=== PATIENT | male | born 1935 | race Native Hawaiian/Other Pacific Islander ===

== ENCOUNTER 2017-01-06 11:27 | Outpatient (CLI) | payer OTHER ==
[~2017-01-06 11:27] MED LIST: AMOX875T8 PO; BENZSOL4 OT; CARDURA4 MG PO; CIPRO500 MG OR; DULO60CA2 OR; FLUT0.05 NAS; KETOROLAC15 MG/ML IJ; LISI20TA24 PO; MELO-13 PO; SIMV10TA PO
== END 2017-01-06 19:17 | disposition home or self-care (01) ==
LOC: RAD 11:27
DX: M25.551 Pain in right hip (principal)

== ENCOUNTER 2017-12-29 07:11 | Outpatient (CLI) | payer OTHER ==
[~2017-12-29] VITALS: Ht 154.9 cm; Wt 76.7 kg
== END 2017-12-29 19:08 | disposition home or self-care (01) ==
LOC: NM 07:11
DX: R07.89 Other chest pain (principal)
CPT/HCPCS: A9500; J2785

== ENCOUNTER 2018-01-10 11:27 | Outpatient (CLI) | payer OTHER | END 2018-01-10 22:24 | disposition home or self-care (01) | LOC: MRI 11:27 | DX: M47.14 Other spondylosis with myelopathy, thoracic region (principal) ==

== ENCOUNTER 2018-01-17 16:13 | Outpatient (CLI) | payer OTHER ==
[2018-01-17 16:49] LABS: PLATELET COUNT 230 K/uL (142-355)
[2018-01-17 16:53] LABS: POTASSIUM 3.6 mmol/L (3.6-5.2)
== END 2018-01-17 22:52 | disposition home or self-care (01) ==
LOC: LABW 16:13
PROVIDERS: Orthopaedic Surgery Orthopaedic Surgery of the Spine
DX: M48.02 Spinal stenosis, cervical region (principal); Z01.810 Encounter for preprocedural cardiovascular examination; Z01.812 Encounter for preprocedural laboratory examination; Z51.81 Encounter for therapeutic drug level monitoring
CPT/HCPCS: 36415; 80048; 81000; 85027; 85610; 87070

== ENCOUNTER 2018-03-24 09:51 | Inpatient (IN) | payer OTHER | END 2018-04-08 11:13 | disposition still patient (30) | LOC: PAVC 09:51 | PROVIDERS: ADMIT Internal Medicine ==

== ENCOUNTER 2018-03-25 00:13 | Outpatient (CLI) | payer OTHER ==
[2018-03-25 08:08] LABS: PLATELET COUNT 320 K/uL (142-355)
[2018-03-25 08:50] LABS: POTASSIUM 3.8 mmol/L (3.6-5.2)
== END 2018-03-25 01:13 | disposition home or self-care (01) ==
LOC: LAB 00:13
PROVIDERS: Internal Medicine
DX: E78.5 Hyperlipidemia, unspecified (principal); E03.9 Hypothyroidism, unspecified; M10.9 Gout, unspecified; L02.91 Cutaneous abscess, unspecified; R19.5 Other fecal abnormalities
CPT/HCPCS: 80053; 80061; 82306; 84443; 85027; 87070; 87077; 87081; 87185; 87186; 87205

== ENCOUNTER 2018-04-06 12:52 | Outpatient (CLI) | payer OTHER | END 2018-04-06 19:43 | disposition home or self-care (01) | LOC: LAB 12:52 | DX: N39.8 Other specified disorders of urinary system (principal); R41.82 Altered mental status, unspecified | CPT/HCPCS: 81000; 87077; 87086; 87088; 87186 ==

== ENCOUNTER 2018-04-08 11:47 | Inpatient (IN) | payer OTHER ==
[2018-04-10] MEDS ORDERED: TAMS0.4C PO (12:18)
== END 2018-05-08 15:05 | disposition still patient (30) ==
LOC: PAVC 11:47
PROVIDERS: ADMIT Internal Medicine
DX: M62.81 Muscle weakness (generalized) (principal); N39.0 Urinary tract infection, site not specified; I25.10 Atherosclerotic heart disease of native coronary artery without angina pectoris; M50.00 Cervical disc disorder with myelopathy, unspecified cervical region; M19.90 Unspecified osteoarthritis, unspecified site; M51.36 Other intervertebral disc degeneration, lumbar region; F32.89 Other specified depressive episodes; F41.9 Anxiety disorder, unspecified; I10 Essential (primary) hypertension; N40.0 Benign prostatic hyperplasia without lower urinary tract symptoms
CPT/HCPCS: 80053; 85027

== ENCOUNTER 2018-04-09 13:50 | Inpatient (IN) | payer OTHER ==
[2018-04-09] VITALS (20 sets, daily range): BP systolic 66–131; BP diastolic 37–80; TEMP 97.6; Ht 160 cm; Wt 73.7 kg
[~2018-04-09] VITALS: Ht 160 cm; Wt 73.7 kg
[2018-04-09 14:20] LABS: PLATELET COUNT 457 K/uL (142-355)
[2018-04-09 14:28] LABS: POTASSIUM 4.2 mmol/L (3.6-5.2); SODIUM 134 mmol/L (136-145)
[2018-04-10] VITALS (40 sets, daily range): BP systolic 73–140; BP diastolic 41–87; TEMP 98–98.8
[2018-04-10] MEDS ORDERED: TAMS0.4C PO (12:18)
[2018-04-11] VITALS (14 sets, daily range): BP systolic 90–130; BP diastolic 60–90; TEMP 98–98.5
[2018-04-11 06:23] LABS: PLATELET COUNT 306 K/uL (142-355)
[2018-04-11 06:33] LABS: POTASSIUM 4.1 mmol/L (3.6-5.2)
[2018-04-12] VITALS: BP 97/63; TEMP 98.7
[2018-04-12 04:00] VITALS: BP 94/64; TEMP 98.3
[2018-04-12 06:24] LABS: PLATELET COUNT 292 K/uL (142-355)
[2018-04-12 06:44] LABS: POTASSIUM 4.1 mmol/L (3.6-5.2)
[2018-04-12 08:11] VITALS: BP 104/67; TEMP 97.2
[2018-04-12 12:00] VITALS: BP 97/67; TEMP 98.3
[2018-04-12 16:00] VITALS: BP 100/65; TEMP 98.4
[2018-04-12 20:00] VITALS: BP 110/52; TEMP 98.4
[2018-04-13 00:28] VITALS: BP 116/64; TEMP 98.8
[2018-04-13 04:00] VITALS: BP 102/60; TEMP 98.1
[2018-04-13 06:04] LABS: PLATELET COUNT 313 K/uL (142-355)
[2018-04-13 06:06] LABS: POTASSIUM 3.7 mmol/L (3.6-5.2)
[2018-04-13 08:00] VITALS: BP 115/74; TEMP 98.3
== END 2018-04-13 11:45 | DRG 871 ==
LOC: ED 13:50 → ICU 16:50 → MED/SURG 04-11 13:20
PROVIDERS: ADMIT Internal Medicine
DX: A41.89 Other specified sepsis (principal); G93.49 Other encephalopathy; N39.0 Urinary tract infection, site not specified; K92.2 Gastrointestinal hemorrhage, unspecified; R55 Syncope and collapse; I10 Essential (primary) hypertension; M48.061 Spinal stenosis, lumbar region without neurogenic claudication; M15.8 Other polyosteoarthritis; I25.10 Atherosclerotic heart disease of native coronary artery without angina pectoris; M10.9 Gout, unspecified; I95.89 Other hypotension; E78.4 Other hyperlipidemia; K57.90 Diverticulosis of intestine, part unspecified, without perforation or abscess without bleeding; R33.8 Other retention of urine; R00.0 Tachycardia, unspecified
CPT/HCPCS: 36415; 51702; 80048; 80053; 81000; 82150; 82272; 83605; 83690; 84484; 84550; 85014; 85018; 85027; 86850; 86900; 86901; 87040; 87088; 93005; 94760; 96374; 96376; 99285; J0696; J2185; J2405; J3411; J3490

== ENCOUNTER 2018-04-14 11:52 | Emergency (ER) | payer OTHER ==
[~2018-04-14] VITALS: Ht 160 cm; Wt 73.5 kg
[~2018-04-14 11:52] MED LIST changes: +TAMS0.4C PO
[2018-04-14 11:54] VITALS: TEMP 97.5
[2018-04-14 12:55] LABS: POTASSIUM 4.2 mmol/L (3.6-5.2)
[2018-04-14 12:56] LABS: PLATELET COUNT 350 K/uL (142-355)
[2018-04-14 14:39] VITALS: BP 96/60
== END 2018-04-14 14:40 | disposition home or self-care (01) ==
LOC: ED 11:52
DX: R55 Syncope and collapse (principal); N39.0 Urinary tract infection, site not specified; I95.89 Other hypotension
CPT/HCPCS: 36415; 80053; 81000; 82550; 84484; 85027; 87088; 93005; 96360; 96361; 99284

== ENCOUNTER 2018-04-20 14:33 | Outpatient (CLI) | payer OTHER | END 2018-04-20 19:51 | disposition home or self-care (01) | LOC: RESP 14:33 | DX: R55 Syncope and collapse (principal) | CPT/HCPCS: 93225; 93306 ==

== ENCOUNTER 2018-04-28 17:31 | Outpatient (CLI) | payer OTHER | END 2018-04-28 22:21 | disposition home or self-care (01) | LOC: RAD 17:31 | DX: G25.81 Restless legs syndrome (principal); Z01.818 Encounter for other preprocedural examination; D64.9 Anemia, unspecified | CPT/HCPCS: 80053; 85027 ==

== ENCOUNTER 2018-04-28 20:18 | Outpatient (CLI) | payer OTHER ==
[2018-04-28 21:16] LABS: PLATELET COUNT 355 K/uL (142-355)
[2018-04-28 21:53] LABS: POTASSIUM 4.4 mmol/L (3.6-5.2)
== END 2018-04-28 22:21 | disposition home or self-care (01) ==
LOC: LAB 20:18
PROVIDERS: Internal Medicine
DX: D64.9 Anemia, unspecified (principal)
CPT/HCPCS: 80053; 85027

== ENCOUNTER 2018-05-08 15:56 | Inpatient (IN) | payer OTHER | END 2018-06-08 10:34 | disposition still patient (30) | LOC: PAVC 15:56 | PROVIDERS: ADMIT Internal Medicine | DX: M51.36 Other intervertebral disc degeneration, lumbar region (principal); M50.00 Cervical disc disorder with myelopathy, unspecified cervical region; M62.81 Muscle weakness (generalized); I25.10 Atherosclerotic heart disease of native coronary artery without angina pectoris; M19.90 Unspecified osteoarthritis, unspecified site; E78.5 Hyperlipidemia, unspecified; F32.89 Other specified depressive episodes; F41.9 Anxiety disorder, unspecified; I10 Essential (primary) hypertension; N40.0 Benign prostatic hyperplasia without lower urinary tract symptoms | CPT/HCPCS: G0283-GP ==

== ENCOUNTER 2018-06-08 11:40 | Inpatient (IN) | payer OTHER | END 2018-07-08 07:22 | disposition still patient (30) | LOC: PAVC 11:40 | PROVIDERS: ADMIT Internal Medicine ==

== ENCOUNTER 2018-07-08 07:58 | Inpatient (IN) | payer OTHER | END 2018-08-08 09:38 | disposition still patient (30) | LOC: PAVC 07:58 | PROVIDERS: ADMIT Internal Medicine ==

== ENCOUNTER 2018-07-27 17:04 | Outpatient (CLI) | payer OTHER | END 2018-07-27 21:48 | disposition home or self-care (01) | LOC: LAB 17:04 | DX: N39.0 Urinary tract infection, site not specified (principal) | CPT/HCPCS: 81000; 87086; 87088 ==

== ENCOUNTER 2018-07-29 10:53 | Outpatient (CLI) | payer OTHER | END 2018-07-29 21:56 | disposition home or self-care (01) | LOC: LAB 10:53 | DX: R82.998 Other abnormal findings in urine (principal) | CPT/HCPCS: 81000; 87077; 87086; 87088; 87185; 87186 ==

== ENCOUNTER 2018-08-08 10:05 | Inpatient (IN) | payer OTHER | END 2018-09-08 09:40 | disposition still patient (30) | LOC: PAVC 10:05 | PROVIDERS: ADMIT Internal Medicine ==

== ENCOUNTER 2018-08-17 13:59 | Inpatient (IN) | payer OTHER ==
[~2018-08-17] VITALS: Ht 160 cm; Wt 82.2 kg
[2018-08-17 17:45] VITALS: BP 112/73; TEMP 98.2; Ht 160 cm; Wt 82.2 kg
[2018-08-17 18:06] LABS: PLATELET COUNT 214 K/uL (142-355)
[2018-08-17 18:15] LABS: PARTIAL THROMBOPLASTIN TIME 24.4 SECONDS (24.5-33.6)
[2018-08-17 18:17] LABS: POTASSIUM 4.4 mmol/L (3.6-5.2)
[2018-08-17 20:03] VITALS: BP 118/77; TEMP 98.2
[2018-08-18] VITALS: BP 95/50; TEMP 98.5
[2018-08-18 04:13] VITALS: BP 120/60; TEMP 98.8
[2018-08-18 08:00] VITALS: BP 114/63; TEMP 97.6
[2018-08-18 12:00] VITALS: BP 109/66; TEMP 98
[2018-08-18 16:08] VITALS: BP 122/82; TEMP 98.2
[2018-08-18 19:59] VITALS: BP 121/78; TEMP 98.7
[2018-08-19] VITALS: BP 120/77; TEMP 98.6
[2018-08-19 04:00] VITALS: BP 116/77; TEMP 98.3
[2018-08-19 06:00] LABS: PLATELET COUNT 239 K/uL (142-355)
[2018-08-19 06:01] LABS: POTASSIUM 4.4 mmol/L (3.6-5.2)
[2018-08-19 08:11] VITALS: BP 126/65; TEMP 98.7
== END 2018-08-19 15:46 | DRG 301 ==
LOC: US 13:59 → MED/SURG 17:13
PROVIDERS: ADMIT Internal Medicine
DX: I82.412 Acute embolism and thrombosis of left femoral vein (principal); I82.432 Acute embolism and thrombosis of left popliteal vein; I82.442 Acute embolism and thrombosis of left tibial vein; I10 Essential (primary) hypertension; M10.9 Gout, unspecified; I25.10 Atherosclerotic heart disease of native coronary artery without angina pectoris; E78.49 Other hyperlipidemia; M48.02 Spinal stenosis, cervical region; M48.061 Spinal stenosis, lumbar region without neurogenic claudication; M51.36 Other intervertebral disc degeneration, lumbar region; K64.4 Residual hemorrhoidal skin tags
CPT/HCPCS: 80048; 80053; 81000; 85027; 85610; 85730; 93005; J1650

== ENCOUNTER 2018-08-20 15:08 | Outpatient (CLI) | payer OTHER | END 2018-08-20 19:15 | disposition home or self-care (01) | LOC: LAB 15:08 | DX: D68.9 Coagulation defect, unspecified (principal) | CPT/HCPCS: 36415; 85610 ==

== ENCOUNTER 2018-08-21 10:52 | Outpatient (CLI) | payer OTHER | END 2018-08-21 22:19 | disposition home or self-care (01) | LOC: LAB 10:52 | DX: Z79.01 Long term (current) use of anticoagulants (principal) | CPT/HCPCS: 85610 ==

== ENCOUNTER 2018-08-22 12:03 | Outpatient (CLI) | payer OTHER | END 2018-08-22 23:43 | disposition home or self-care (01) | LOC: LAB 12:03 | DX: Z79.01 Long term (current) use of anticoagulants (principal) | CPT/HCPCS: 85610 ==

== ENCOUNTER 2018-08-23 12:34 | Outpatient (CLI) | payer OTHER | END 2018-08-23 19:35 | disposition home or self-care (01) | LOC: LAB 12:34 | DX: R79.1 Abnormal coagulation profile (principal) | CPT/HCPCS: 85610 ==

== ENCOUNTER 2018-08-24 17:25 | Outpatient (CLI) | payer OTHER | END 2018-08-24 21:43 | disposition home or self-care (01) | LOC: LAB 17:25 | DX: R79.1 Abnormal coagulation profile (principal) | CPT/HCPCS: 85610 ==

== ENCOUNTER 2018-08-25 17:02 | Outpatient (CLI) | payer OTHER | END 2018-08-25 20:28 | disposition home or self-care (01) | LOC: LAB 17:02 | DX: R79.1 Abnormal coagulation profile (principal) | CPT/HCPCS: 85610 ==

== ENCOUNTER 2018-08-26 14:00 | Outpatient (CLI) | payer OTHER | END 2018-08-26 23:46 | disposition home or self-care (01) | LOC: LAB 14:00 | DX: Z79.01 Long term (current) use of anticoagulants (principal) | CPT/HCPCS: 36415; 85610 ==

== ENCOUNTER 2018-08-27 14:04 | Outpatient (CLI) | payer OTHER | END 2018-08-27 19:08 | disposition home or self-care (01) | LOC: LAB 14:04 | DX: Z79.01 Long term (current) use of anticoagulants (principal) | CPT/HCPCS: 36415; 85610 ==

== ENCOUNTER 2018-08-28 15:30 | Outpatient (CLI) | payer OTHER | END 2018-08-28 22:14 | disposition home or self-care (01) | LOC: LAB 15:30 | DX: R79.1 Abnormal coagulation profile (principal); Z79.01 Long term (current) use of anticoagulants | CPT/HCPCS: 36415; 85610 ==

== ENCOUNTER 2018-09-01 13:11 | Outpatient (CLI) | payer OTHER | END 2018-09-01 19:03 | disposition home or self-care (01) | LOC: LAB 13:11 | DX: Z79.01 Long term (current) use of anticoagulants (principal) | CPT/HCPCS: 36415; 85610 ==

== ENCOUNTER 2018-09-08 10:30 | Inpatient (IN) | payer OTHER | END 2018-10-06 13:48 | disposition still patient (30) | LOC: PAVC 10:30 | PROVIDERS: ADMIT Internal Medicine ==

== ENCOUNTER 2018-09-11 08:02 | Outpatient (CLI) | payer OTHER ==
[2018-09-11 08:39] LABS: PLATELET COUNT 302 K/uL (142-355)
== END 2018-09-11 20:46 | disposition home or self-care (01) ==
LOC: LAB 08:02
PROVIDERS: Internal Medicine
DX: R94.6 Abnormal results of thyroid function studies (principal); I10 Essential (primary) hypertension; I25.10 Atherosclerotic heart disease of native coronary artery without angina pectoris
CPT/HCPCS: 36415; 80053; 82306; 84443; 85027; 85610

== ENCOUNTER 2018-10-06 14:29 | Inpatient (IN) | payer OTHER ==
[2018-10-11] MEDS ORDERED: WARF5TAB6 PO (18:15)
[2018-10-11] MEDS ORDERED: AZO-CRANBERY450 MG PO (18:15)
[2018-10-11] MEDS ORDERED: GABA300C2 PO (18:16)
[2018-10-11] MEDS ORDERED: MYRBETRIQ25 MG PO (18:16)
[2018-10-11] MEDS ORDERED: OXYB5TAB56 PO (18:17)
[2018-10-11] MEDS ORDERED: PRED10TA27 PO (18:18)
[2018-10-11] MEDS ORDERED: POLY GLYCOL PO (18:18)
[2018-10-11] MEDS ORDERED: FINA5TAB2 PO (18:19)
[2018-10-11] MEDS ORDERED: LEVO0.0529 PO (18:20)
[2018-10-11] MEDS ORDERED: ROPINIROLE2 M1 PO (18:20)
[2018-10-11] MEDS ORDERED: VITAMIN D32000 UNIT PO (18:21)
[2018-10-11] MEDS ORDERED: VITAMIN D50000 UNIT PO (18:22)
[2018-10-11] MEDS ORDERED: LISI10TA11 PO (18:23)
[2018-10-11] MEDS ORDERED: CLARITIN10 M1 PO (18:23)
[2018-10-11] MEDS ORDERED: HYDR10TA47 PO (18:25)
[2018-10-11] MEDS ORDERED: TYLENOL325 MG PO (18:26)
[2018-10-11] MEDS ORDERED: TRAM50TA PO (18:26)
[2018-10-11] MEDS ORDERED: ROBITUSS10 PO (18:27)
[2018-10-11] MEDS ORDERED: SENNA-TABS8.6 MG PO (18:29)
== END 2018-11-06 12:32 | disposition still patient (30) ==
LOC: PAVC 14:29
PROVIDERS: ADMIT Internal Medicine

== ENCOUNTER 2018-10-10 09:49 | Outpatient (CLI) | payer OTHER ==
[2018-10-11] MEDS ORDERED: AZO-CRANBERY450 MG PO (18:15)
[2018-10-11] MEDS ORDERED: WARF5TAB6 PO (18:15)
[2018-10-11] MEDS ORDERED: MYRBETRIQ25 MG PO (18:16)
[2018-10-11] MEDS ORDERED: GABA300C2 PO (18:16)
[2018-10-11] MEDS ORDERED: OXYB5TAB56 PO (18:17)
[2018-10-11] MEDS ORDERED: PRED10TA27 PO (18:18)
[2018-10-11] MEDS ORDERED: POLY GLYCOL PO (18:18)
[2018-10-11] MEDS ORDERED: FINA5TAB2 PO (18:19)
[2018-10-11] MEDS ORDERED: ROPINIROLE2 M1 PO (18:20)
[2018-10-11] MEDS ORDERED: LEVO0.0529 PO (18:20)
[2018-10-11] MEDS ORDERED: VITAMIN D32000 UNIT PO (18:21)
[2018-10-11] MEDS ORDERED: VITAMIN D50000 UNIT PO (18:22)
[2018-10-11] MEDS ORDERED: CLARITIN10 M1 PO (18:23)
[2018-10-11] MEDS ORDERED: LISI10TA11 PO (18:23)
[2018-10-11] MEDS ORDERED: HYDR10TA47 PO (18:25)
[2018-10-11] MEDS ORDERED: TRAM50TA PO (18:26)
[2018-10-11] MEDS ORDERED: TYLENOL325 MG PO (18:26)
[2018-10-11] MEDS ORDERED: ROBITUSS10 PO (18:27)
[2018-10-11] MEDS ORDERED: SENNA-TABS8.6 MG PO (18:29)
== END 2018-10-10 23:50 | disposition home or self-care (01) ==
LOC: RAD 09:49
DX: R05 Cough (principal)

== ENCOUNTER 2018-10-11 09:49 | Inpatient (IN) | payer OTHER ==
[~2018-10-11] VITALS: Ht 160 cm; Wt 79.8 kg
[2018-10-11 12:00] VITALS: BP 99/72; TEMP 97.3
[2018-10-11 13:36] LABS: POTASSIUM 3.7 mmol/L (3.6-5.2)
[2018-10-11 13:39] LABS: PLATELET COUNT 353 K/uL (142-355)
[2018-10-11 14:52] VITALS: BP 99/72; TEMP 97.3; Ht 160 cm; Wt 79.8 kg
[2018-10-11 16:00] VITALS: BP 127/74; TEMP 97.8
[2018-10-11] MEDS ORDERED: AZO-CRANBERY450 MG PO (18:15)
[2018-10-11] MEDS ORDERED: WARF5TAB6 PO (18:15)
[2018-10-11] MEDS ORDERED: MYRBETRIQ25 MG PO (18:16)
[2018-10-11] MEDS ORDERED: GABA300C2 PO (18:16)
[2018-10-11] MEDS ORDERED: OXYB5TAB56 PO (18:17)
[2018-10-11] MEDS ORDERED: PRED10TA27 PO (18:18)
[2018-10-11] MEDS ORDERED: POLY GLYCOL PO (18:18)
[2018-10-11] MEDS ORDERED: FINA5TAB2 PO (18:19)
[2018-10-11] MEDS ORDERED: LEVO0.0529 PO (18:20)
[2018-10-11] MEDS ORDERED: ROPINIROLE2 M1 PO (18:20)
[2018-10-11] MEDS ORDERED: VITAMIN D32000 UNIT PO (18:21)
[2018-10-11] MEDS ORDERED: VITAMIN D50000 UNIT PO (18:22)
[2018-10-11] MEDS ORDERED: LISI10TA11 PO (18:23)
[2018-10-11] MEDS ORDERED: CLARITIN10 M1 PO (18:23)
[2018-10-11] MEDS ORDERED: HYDR10TA47 PO (18:25)
[2018-10-11] MEDS ORDERED: TYLENOL325 MG PO (18:26)
[2018-10-11] MEDS ORDERED: TRAM50TA PO (18:26)
[2018-10-11] MEDS ORDERED: ROBITUSS10 PO (18:27)
[2018-10-11] MEDS ORDERED: SENNA-TABS8.6 MG PO (18:29)
[2018-10-11 20:00] VITALS: BP 92/67; TEMP 97.2
[2018-10-12] VITALS: BP 99/66; TEMP 97.5
[2018-10-12 04:00] VITALS: BP 111/64; TEMP 97.9
[2018-10-12 08:00] VITALS: BP 114/80; TEMP 98.6
--- NOTE | 2018-10-12 11:15 | NUR ---
PT XFER TO [facility] REPORT GIVEN TO [facility]. PT TO CONTINUE HOME MEDS. IV DC TIP INTACT. PT DC VIA BED. NO PROLEMS NOTED
== END 2018-10-12 11:15 | DRG 390 ==
LOC: RAD 09:49 → MED/SURG 11:00
PROVIDERS: ADMIT Internal Medicine
DX: K56.7 Ileus, unspecified (principal); I95.89 Other hypotension; R41.82 Altered mental status, unspecified; I10 Essential (primary) hypertension; I25.10 Atherosclerotic heart disease of native coronary artery without angina pectoris; E03.8 Other specified hypothyroidism; N40.0 Benign prostatic hyperplasia without lower urinary tract symptoms
CPT/HCPCS: 80053; 85027; 93005; J2765

== ENCOUNTER 2018-11-01 09:18 | Outpatient (CLI) | payer OTHER ==
[~2018-11-01 09:18] MED LIST changes: +AZO-CRANBERY450 MG PO; +CLARITIN10 M1 PO; +FINA5TAB2 PO; +GABA300C2 PO; +HYDR10TA47 PO; +LEVO0.0529 PO; +LISI10TA11 PO; +MYRBETRIQ25 MG PO; +OXYB5TAB56 PO; +POLY GLYCOL PO; +PRED10TA27 PO; +ROBITUSS10 PO; +ROPINIROLE2 M1 PO; +SENNA-TABS8.6 MG PO; +TRAM50TA PO; +TYLENOL325 MG PO; +VITAMIN D32000 UNIT PO; +VITAMIN D50000 UNIT PO; +WARF5TAB6 PO
== END 2018-11-01 20:18 | disposition home or self-care (01) ==
LOC: RAD 09:18
DX: R10.9 Unspecified abdominal pain (principal); R14.0 Abdominal distension (gaseous)

== ENCOUNTER 2018-11-02 19:59 | Outpatient (CLI) | payer OTHER | END 2018-11-02 21:26 | disposition home or self-care (01) | LOC: LAB 19:59 | DX: R14.0 Abdominal distension (gaseous) (principal); R10.9 Unspecified abdominal pain | CPT/HCPCS: 81000; 87077; 87086; 87088; 87186 ==

== ENCOUNTER 2018-11-06 12:58 | Inpatient (IN) | payer OTHER | END 2018-12-06 13:45 | disposition still patient (30) | LOC: PAVC 12:58 | PROVIDERS: ADMIT Internal Medicine ==

== ENCOUNTER 2018-11-09 04:50 | Outpatient (CLI) | payer OTHER | END 2018-11-09 19:07 | disposition home or self-care (01) | LOC: LAB 04:50 | DX: R79.1 Abnormal coagulation profile (principal) | CPT/HCPCS: 85610 ==

== ENCOUNTER 2018-11-13 04:29 | Outpatient (CLI) | payer OTHER | END 2018-11-13 22:53 | disposition home or self-care (01) | LOC: LAB 04:29 | DX: D68.9 Coagulation defect, unspecified (principal) | CPT/HCPCS: 36415; 85610 ==

== ENCOUNTER 2018-11-21 13:18 | Outpatient (CLI) | payer OTHER | END 2018-11-21 22:50 | disposition home or self-care (01) | LOC: LAB 13:18 | DX: R82.998 Other abnormal findings in urine (principal) | CPT/HCPCS: 81000; 87077; 87086; 87088; 87186 ==

== ENCOUNTER 2018-11-27 05:12 | Outpatient (CLI) | payer OTHER | END 2018-11-27 19:28 | disposition home or self-care (01) | LOC: LAB 05:12 | DX: E55.9 Vitamin D deficiency, unspecified (principal); R97.20 Elevated prostate specific antigen [PSA]; R79.1 Abnormal coagulation profile | CPT/HCPCS: 36415; 82306; 84153; 85610 ==

== ENCOUNTER 2018-12-01 07:44 | Outpatient (CLI) | payer OTHER | END 2018-12-01 22:34 | disposition home or self-care (01) | LOC: LAB 07:44 | DX: N39.0 Urinary tract infection, site not specified (principal); B96.89 Other specified bacterial agents as the cause of diseases classified elsewhere; D68.8 Other specified coagulation defects; Z79.01 Long term (current) use of anticoagulants | CPT/HCPCS: 36415; 85610 ==

== ENCOUNTER 2018-12-05 03:55 | Outpatient (CLI) | payer OTHER | END 2018-12-05 23:12 | disposition home or self-care (01) | LOC: LAB 03:55 | DX: N39.0 Urinary tract infection, site not specified (principal) | CPT/HCPCS: 81000 ==

== ENCOUNTER 2018-12-06 14:19 | Inpatient (IN) | payer OTHER | END 2019-01-06 09:41 | disposition still patient (30) | LOC: PAVC 14:19 | PROVIDERS: ADMIT Internal Medicine | DX: Z51.89 Encounter for other specified aftercare (principal) ==

== ENCOUNTER 2018-12-11 06:05 | Outpatient (CLI) | payer OTHER | END 2018-12-11 20:15 | disposition home or self-care (01) | LOC: LAB 06:05 | DX: R79.1 Abnormal coagulation profile (principal) | CPT/HCPCS: 85610 ==

== ENCOUNTER 2018-12-13 10:14 | Outpatient (CLI) | payer OTHER | END 2018-12-13 22:25 | disposition home or self-care (01) | LOC: RESP 10:14 | DX: I25.118 Atherosclerotic heart disease of native coronary artery with other forms of angina pectoris (principal); I10 Essential (primary) hypertension; R60.1 Generalized edema | CPT/HCPCS: 93306 ==

== ENCOUNTER 2018-12-14 14:35 | Outpatient (CLI) | payer OTHER | END 2018-12-14 23:12 | disposition home or self-care (01) | LOC: RAD 14:35 | DX: R09.89 Other specified symptoms and signs involving the circulatory and respiratory systems (principal) ==

== ENCOUNTER 2018-12-16 21:54 | Outpatient (CLI) | payer OTHER ==
[2018-12-16 22:03] LABS: PLATELET COUNT 314 K/uL (142-355)
[2018-12-16 22:04] LABS: POTASSIUM 4.1 mmol/L (3.6-5.2)
== END 2018-12-16 23:59 | disposition home or self-care (01) ==
LOC: LAB 21:54
PROVIDERS: Internal Medicine
DX: R09.89 Other specified symptoms and signs involving the circulatory and respiratory systems (principal); R06.02 Shortness of breath
CPT/HCPCS: 80048; 83880; 85027

== ENCOUNTER 2019-01-06 10:12 | Inpatient (IN) | payer OTHER | END 2019-02-05 12:20 | disposition still patient (30) | LOC: PAVC 10:12 | PROVIDERS: ADMIT Internal Medicine ==

== ENCOUNTER 2019-01-10 04:40 | Outpatient (CLI) | payer OTHER | END 2019-01-10 23:22 | disposition home or self-care (01) | LOC: LAB 04:40 | DX: Z79.01 Long term (current) use of anticoagulants (principal) | CPT/HCPCS: 85610 ==

== ENCOUNTER 2019-01-11 10:49 | Emergency (ER) | payer OTHER ==
[~2019-01-11] VITALS: Ht 160 cm; Wt 89.8 kg
[2019-01-11 10:49] VITALS: TEMP 98.2
[2019-01-11 11:26] LABS: PLATELET COUNT 336 K/uL (142-355)
[2019-01-11 11:35] LABS: POTASSIUM 4.1 mmol/L (3.6-5.2); SODIUM 130 mmol/L (136-145)
[2019-01-11 14:25] VITALS: BP 84/93
== END 2019-01-11 14:26 ==
LOC: ED 10:54
PROVIDERS: Family Medicine
DX: N39.0 Urinary tract infection, site not specified (principal); I95.89 Other hypotension; R09.02 Hypoxemia; R41.82 Altered mental status, unspecified; I45.19 Other right bundle-branch block
CPT/HCPCS: 36415; 80053; 80307; 81000; 82550; 82553; 83605; 84484; 85027; 87040; 87077; 87086; 87088; 87186; 93005; 96365; 96375; 99284; J0696

== ENCOUNTER 2019-01-14 10:22 | Outpatient (CLI) | payer OTHER ==
[2019-01-14 11:38] LABS: PLATELET COUNT 283 K/uL (142-355)
[2019-01-14 11:39] LABS: POTASSIUM 4.3 mmol/L (3.6-5.2)
== END 2019-01-14 21:38 | disposition home or self-care (01) ==
LOC: RAD 10:22
PROVIDERS: Internal Medicine
DX: R10.84 Generalized abdominal pain (principal)
CPT/HCPCS: 36415; 80053; 85027

== ENCOUNTER 2019-01-25 15:36 | Outpatient (CLI) | payer OTHER | END 2019-01-25 23:09 | disposition home or self-care (01) | LOC: LAB 15:36 | DX: R82.998 Other abnormal findings in urine (principal); R82.79 Other abnormal findings on microbiological examination of urine; Z79.2 Long term (current) use of antibiotics | CPT/HCPCS: 81000; 87070; 87077; 87185; 87186 ==

== ENCOUNTER 2019-01-26 18:21 | Outpatient (CLI) | payer OTHER | END 2019-01-26 23:34 | disposition home or self-care (01) | LOC: LABW 18:21 → LAB 18:21 → LABW 23:34 | DX: R79.1 Abnormal coagulation profile (principal) | CPT/HCPCS: 85610 ==

== ENCOUNTER 2019-01-29 05:29 | Outpatient (CLI) | payer OTHER | END 2019-01-29 23:20 | disposition home or self-care (01) | LOC: LAB 05:29 | DX: R79.1 Abnormal coagulation profile (principal) | CPT/HCPCS: 36415; 85610 ==

== ENCOUNTER 2019-01-31 04:31 | Outpatient (CLI) | payer OTHER | END 2019-01-31 20:10 | disposition home or self-care (01) | LOC: LAB 04:31 | DX: Z79.01 Long term (current) use of anticoagulants (principal) | CPT/HCPCS: 36415; 85610 ==

== ENCOUNTER 2019-02-05 12:41 | Inpatient (IN) | payer OTHER ==
[2019-02-20] MEDS ORDERED: CASA100C53 PO (10:54)
[2019-02-20] MEDS ORDERED: PANTOPRAZOLE 40MG TA PO (10:54)
== END 2019-03-08 12:32 | disposition still patient (30) ==
LOC: PAVC 12:41
PROVIDERS: ADMIT Internal Medicine
DX: N39.0 Urinary tract infection, site not specified (principal); Z16.12 Extended spectrum beta lactamase (ESBL) resistance; M62.81 Muscle weakness (generalized); R13.12 Dysphagia, oropharyngeal phase; M50.00 Cervical disc disorder with myelopathy, unspecified cervical region; I95.9 Hypotension, unspecified; N31.9 Neuromuscular dysfunction of bladder, unspecified; N40.0 Benign prostatic hyperplasia without lower urinary tract symptoms; F41.1 Generalized anxiety disorder; F32.89 Other specified depressive episodes
CPT/HCPCS: 36415; 81000; 85610; 85730; 87077; 87086; 87088; 87186

== ENCOUNTER 2019-02-08 17:50 | Outpatient (CLI) | payer OTHER | END 2019-02-08 19:48 | disposition home or self-care (01) | LOC: LAB 17:50 | DX: R09.3 Abnormal sputum (principal) | CPT/HCPCS: 87070; 87077; 87186; 87205 ==

== ENCOUNTER 2019-02-09 04:17 | Outpatient (CLI) | payer OTHER | END 2019-02-09 20:39 | disposition home or self-care (01) | LOC: LAB 04:17 | DX: Z79.01 Long term (current) use of anticoagulants (principal) | CPT/HCPCS: 85610 ==

== ENCOUNTER 2019-02-17 11:39 | Outpatient (CLI) | payer OTHER ==
[2019-02-17 12:13] LABS: PLATELET COUNT 251 K/uL (142-355)
== END 2019-02-17 22:33 | disposition home or self-care (01) ==
LOC: LAB 11:39
PROVIDERS: Internal Medicine
DX: R31.9 Hematuria, unspecified (principal)
CPT/HCPCS: 85027; 85610

== ENCOUNTER 2019-02-17 18:55 | Inpatient (IN) | payer OTHER ==
[~2019-02-17] VITALS: Ht 160 cm; Wt 92.3 kg
[2019-02-17 19:27] VITALS: BP 100/52; TEMP 97.5
[2019-02-17 19:32] LABS: PLATELET COUNT 268 K/uL (142-355)
[2019-02-17 19:45] VITALS: BP 88/55
[2019-02-17 19:45] LABS: POTASSIUM 5.2 mmol/L (3.6-5.2)
[2019-02-17 20:00] VITALS: BP 104/31
[2019-02-17 20:15] VITALS: BP 118/66
[2019-02-17 20:30] VITALS: BP 111/78
[2019-02-17 22:54] VITALS: BP 101/42; TEMP 97.9; Ht 160 cm; Wt 92.3 kg
[2019-02-18] VITALS (7 sets, daily range): BP systolic 85–116; BP diastolic 43–96; TEMP 96–97.9
[2019-02-18 04:38] LABS: PLATELET COUNT 244 K/uL (142-355)
[2019-02-18 04:54] LABS: POTASSIUM 4.7 mmol/L (3.6-5.2)
[2019-02-19 04:03] VITALS: BP 84/41; TEMP 97.8
[2019-02-19 08:00] VITALS: BP 120/72; TEMP 97.5
[2019-02-19 12:00] VITALS: BP 98/42; TEMP 98.3
[2019-02-19 16:00] VITALS: BP 115/44; TEMP 98.1
[2019-02-19 20:00] VITALS: BP 100/53; TEMP 98.3
[2019-02-19 23:44] VITALS: BP 100/60; TEMP 98
[2019-02-20 04:00] VITALS: BP 97/53; TEMP 97.9
[2019-02-20 04:56] LABS: PLATELET COUNT 244 K/uL (142-355)
[2019-02-20 05:31] LABS: POTASSIUM 4.5 mmol/L (3.6-5.2)
[2019-02-20 08:00] VITALS: BP 98/64; TEMP 98
[2019-02-20] MEDS ORDERED: CASA100C53 PO ×2 (10:54)
[2019-02-20] MEDS ORDERED: PANTOPRAZOLE 40MG TA PO ×2 (10:54)
[2019-02-20 12:00] VITALS: BP 101/65; TEMP 97.9
== END 2019-02-20 13:30 | DRG 690 ==
LOC: ED 18:55 → MED/SURG 20:22
PROVIDERS: Internal Medicine; ADMIT Family Medicine
DX: N39.0 Urinary tract infection, site not specified (principal); E87.1 Hypo-osmolality and hyponatremia; N17.8 Other acute kidney failure; I95.89 Other hypotension; R00.1 Bradycardia, unspecified; B96.20 Unspecified Escherichia coli [E. coli] as the cause of diseases classified elsewhere; I25.10 Atherosclerotic heart disease of native coronary artery without angina pectoris; I10 Essential (primary) hypertension; E78.49 Other hyperlipidemia; N40.0 Benign prostatic hyperplasia without lower urinary tract symptoms
CPT/HCPCS: 36415; 80053; 81000; 85027; 85610; 85730; 87077; 87086; 87088; 87186; 93005; 94760; 96360; 99284; J2060; J2175; J2185

== ENCOUNTER 2019-03-08 14:23 | Inpatient (IN) | payer OTHER ==
[~2019-03-08 14:23] MED LIST changes: +CASA100C53 PO; +PANTOPRAZOLE 40MG TA PO
[2019-03-12 06:55] LABS: PLATELET COUNT 292 K/uL (142-355)
[2019-03-12 07:28] LABS: POTASSIUM 4.3 mmol/L (3.6-5.2)
== END 2019-04-08 17:18 | disposition still patient (30) ==
LOC: PAVC 14:23
PROVIDERS: ADMIT Internal Medicine
DX: N39.0 Urinary tract infection, site not specified (principal); Z16.12 Extended spectrum beta lactamase (ESBL) resistance; M62.81 Muscle weakness (generalized); R13.12 Dysphagia, oropharyngeal phase; M50.00 Cervical disc disorder with myelopathy, unspecified cervical region; I95.9 Hypotension, unspecified; N31.9 Neuromuscular dysfunction of bladder, unspecified; N40.0 Benign prostatic hyperplasia without lower urinary tract symptoms; F41.1 Generalized anxiety disorder; F32.89 Other specified depressive episodes
CPT/HCPCS: 36415; 80053; 80061; 84153; 84443; 85027; 85610; 87070; 87077; 87186; 87205

== ENCOUNTER 2019-03-10 06:50 | Outpatient (CLI) | payer OTHER | END 2019-03-10 23:31 | disposition home or self-care (01) | LOC: LAB 06:50 | DX: Z79.01 Long term (current) use of anticoagulants (principal) | CPT/HCPCS: 87070; 87205 ==

== ENCOUNTER 2019-03-12 05:14 | Outpatient (CLI) | payer OTHER | END 2019-03-12 23:17 | disposition home or self-care (01) | LOC: LAB 05:14 | DX: I10 Essential (primary) hypertension (principal); E03.8 Other specified hypothyroidism; E78.49 Other hyperlipidemia ==

== ENCOUNTER 2019-04-08 17:49 | Inpatient (IN) | payer OTHER | END 2019-05-08 12:59 | disposition still patient (30) | LOC: PAVC 17:49 | PROVIDERS: ADMIT Internal Medicine ==

== ENCOUNTER 2019-04-10 08:14 | Outpatient (CLI) | payer OTHER | END 2019-04-10 22:49 | disposition home or self-care (01) | LOC: LAB 08:14 | DX: R79.1 Abnormal coagulation profile (principal); Z51.81 Encounter for therapeutic drug level monitoring | CPT/HCPCS: 85610 ==

== ENCOUNTER 2019-04-19 14:12 | Outpatient (CLI) | payer OTHER | END 2019-04-19 21:47 | disposition home or self-care (01) | LOC: RAD 14:12 | DX: R06.2 Wheezing (principal); R09.89 Other specified symptoms and signs involving the circulatory and respiratory systems ==

== ENCOUNTER 2019-05-06 19:48 | Outpatient (CLI) | payer OTHER | END 2019-05-06 22:31 | disposition home or self-care (01) | LOC: LAB 19:48 | DX: R31.9 Hematuria, unspecified (principal) | CPT/HCPCS: 85610 ==

== ENCOUNTER 2019-05-08 10:37 | Outpatient (CLI) | payer OTHER | END 2019-05-08 23:45 | disposition home or self-care (01) | LOC: LABW 10:37 | DX: R79.1 Abnormal coagulation profile (principal) | CPT/HCPCS: 85610 ==

== ENCOUNTER 2019-05-08 13:38 | Inpatient (IN) | payer OTHER | END 2019-05-19 13:00 | disposition E | LOC: PAVC 13:38 | PROVIDERS: ADMIT Internal Medicine ==

== ENCOUNTER 2019-05-11 05:02 | Outpatient (CLI) | payer OTHER | END 2019-05-11 21:59 | disposition home or self-care (01) | LOC: RAD 05:02 → LAB 05:02 | DX: Z79.01 Long term (current) use of anticoagulants (principal) | CPT/HCPCS: 85610 ==

== ENCOUNTER 2019-05-11 07:10 | Emergency (ER) | payer OTHER ==
[~2019-05-11] VITALS: Ht 160 cm; Wt 92.1 kg
[2019-05-11 07:47] LABS: PLATELET COUNT 365 K/uL (142-355)
[2019-05-11 07:52] LABS: POTASSIUM 4.6 mmol/L (3.6-5.2); SODIUM 133 mmol/L (136-145)
[2019-05-11 08:02] LABS: PARTIAL THROMBOPLASTIN TIME 40.6 SECONDS (24.5-33.6)
[2019-05-11 08:49] VITALS: BP 108/61; TEMP 99.1
== END 2019-05-11 09:28 ==
LOC: ED 07:10
PROVIDERS: Emergency Medicine Emergency Medical Services
DX: N39.0 Urinary tract infection, site not specified (principal); T40.2X1A Poisoning by other opioids, accidental (unintentional), initial encounter; I50.9 Heart failure, unspecified; R00.1 Bradycardia, unspecified; I45.19 Other right bundle-branch block; Y92.128 Other place in nursing home as the place of occurrence of the external cause; Z79.01 Long term (current) use of anticoagulants
CPT/HCPCS: 36415; 80053; 81000; 82550; 82962; 83605; 83880; 84484; 85027; 85610; 85730; 87040; 87070; 87077; 87086; 87088; 87186; 87205; 93005; 96365; 96374; 96375; 99284; J2310

== ENCOUNTER 2019-05-14 05:59 | Outpatient (CLI) | payer OTHER | END 2019-05-14 22:16 | disposition home or self-care (01) | LOC: LAB 05:59 | DX: E55.9 Vitamin D deficiency, unspecified (principal); R82.998 Other abnormal findings in urine | CPT/HCPCS: 81000; 82306; 87086; 87088 ==

== ENCOUNTER 2019-05-14 21:24 | Outpatient (CLI) | payer OTHER | END 2019-05-14 21:51 | disposition home or self-care (01) | LOC: LAB 21:24 | DX: N39.0 Urinary tract infection, site not specified (principal) ==